=== PATIENT | male | born 1950 | race Caucasian/White ===

== ENCOUNTER 2018-10-03 07:27 | Emergency (ER) | payer MEDICARE ==
[2018-10-03 08:03] LABS: #Basophils 0.1 thou/uL (0.0-0.2); #Lymphocytes 1.1 thou/uL (1.20-3.40); #Monocytes 0.3 thou/uL (0.11-0.59); #Neutrophils 6.5 thou/uL (1.40-6.50); %Basophils 1.1 % (0.0-1.0); %Eosinophils 0.5 % (0.0-10.0); %Lymphocytes 13.8 % (21.0-51.0); %Monocytes 3.6 % (0.0-10.0); %Neutrophils 80.9 % (42.0-75.0); Mean Corpuscular HGB CONC 31.9 g/dL (32.0-36.0); Mean Corpuscular Hemoglobin 28.2 pg (27.0-31.0); Mean Corpuscular Volume 88.5 fL (78.0-98.0); Mean Platelet Volume 6.5 fL (7.4-10.4); Platelet Count 189 thou/uL (130-400); RBC Distribution Width 13.9 % (11.5-14.5); Red Blood Cell (RBC) Count 3.91 mill/uL (4.70-6.10)
[2018-10-03 08:19] LABS: ALT (SGPT) 17 U/L (8-55); AST (SGOT) 14 U/L (5-34); Albumin 4.3 g/dL (3.4-4.8); Alkaline Phosphatase 59 U/L (40-150); Anion Gap 14 mmol/L (10-20); BUN (Urea Nitrogen) 15 mg/dL (8.4-25.7); Bilirubin, Total 0.6 mg/dL (0.2-1.2); Calc. Creatinine Clearance 0 mL/min (70-130); Carbon Dioxide 28 mmol/L (23-31); Chloride 102 mmol/L (98-107); Estimated GFR-MDRD Greater than 90; Globulin 3.6 g/dL (2.4-3.5); Glucose 151 mg/dL (80-115); Protein, Total 7.9 g/dL (5.8-8.1); Sodium 140 mmol/L (136-145)
[2018-10-03 08:36] LABS: CKMB 1.5 ng/mL (0-6.6)
[2018-10-03] MEDS ORDERED: Aspirin Chewable 81 MG TAB ONE (09:14)
[2018-10-03] MEDS ORDERED: Metoprolol Tartrate 5 MG/5 ML VIAL ONE ×2 (09:14→09:39)
[2018-10-03] MEDS ORDERED: Nitroglycerin 2% Ointment 1 INCH/1 GM Packet ONE (09:14)
[2018-10-03 09:54] LABS: Clarity Clear (Clear); Glucose, Urine (Dipstick) Negative (Negative); Leukocyte Negative (Negative); Nitrite Negative (Negative); Protein, Urine (Dipstick) Negative (Neg-Trace); Specific Gravity, Urine 1.015 (1.005-1.030); Urobilinogen 0.2 mg/dL (0.2-1.0)
[2018-10-03 09:55] LABS: Bacteria/HPF Rare-Few HPF (None Seen); Bilirubin Negative (Negative); Blood, Urine Small (Negative); Oval Fat Bodies/HPF Rare HPF (None Seen); RBC/HPF 0-3 HPF (0-3); Renal Epithelial 0-3 HPF (0-3); Squamous Epithelial 0-3 HPF (0-3); WBC/HPF 0-3 HPF (0-3)
--- NOTE | 2018-10-03 19:51 | RAD ---
RIGHT HIP TWO VIEWS: 10/03/18 No fracture, dislocation of joint space narrowing was seen. The adjacent pubic ring appears intact. IMPRESSION: No acute findings. POS: HOME
--- NOTE | 2018-10-03 20:04 | RAD ---
RIGHT KNEE FOUR VIEWS 10/03/18 No fracture or joint effusion was seen. The joint space is normal in width. Arterial calcifications a re noted in the popliteal artery. IMPRESSION: No acute bony findings. POS: HOME
--- NOTE | 2018-10-03 20:05 | RAD ---
PELVIS: 10/03/2018 FINDINGS: Two views show no evidence of fracture. The sacrum is partially obscured by bowel and fecal material , but no gross fractures are identified. The SI joints are symmetrical, and the symphysis shows no w idening or offset. The hip joints are symmetrical. There may be a little bit of sclerosis to the ri ght SI joint. IMPRESSION: No acute traumatic findings. POS: HOME
--- NOTE | 2018-10-03 20:06 | CT ---
CT BRAIN WITHOUT CONTRAST: 10/03/2018 FINDINGS: The ventricles are normal in size for age and atrophy. There is no ventricular shift. A persistent cavum septum pellucidum and vergae are noted. Deep white matter hypolucency is typical of chronic mi crovascular ischemia. No parenchymal bleeding or extraaxial hematoma is seen. There is no sign of m ass or edema. The calvarium appears intact. The visible paranasal sinuses and mastoid air cells are clear. IMPRESSION: No acute intracranial findings. POS: HOME
--- NOTE | 2018-10-03 20:06 | RAD ---
PORTABLE CHEST: 10/03/18 An AP portable film at 0810 was compared with a 08/07/18 study from [facility]. There is some very mild congestion of the pulmonary vessels. [place] pulmonary edema is not present. T here are no large effusions . The heart is mildly enlarged but unchanged from before. I cannot proper ly assess the left base due to the portable technique and slight turning of the patient. IMPRESSION: Suspicious for slight vascular congestion. POS: HOME
== END 2018-10-03 09:37 | disposition home or self-care (01) ==
LOC: BURERS 07:27
DX: I21.4 Non-ST elevation (NSTEMI) myocardial infarction (principal); I47.9 Paroxysmal tachycardia, unspecified; E78.5 Hyperlipidemia, unspecified; E11.9 Type 2 diabetes mellitus without complications; I11.0 Hypertensive heart disease with heart failure; I50.9 Heart failure, unspecified; J44.9 Chronic obstructive pulmonary disease, unspecified; F43.10 Post-traumatic stress disorder, unspecified; F41.9 Anxiety disorder, unspecified
CPT/HCPCS: 70450; 71045; 72170; 80053; 81003; 81015; 82553; 83605; 84484; 85025; 93005; 94760; 96374